=== PATIENT | female | born 1995 | race Caucasian/White ===

== ENCOUNTER 2019-07-08 14:41 | Emergency (ER) | payer MEDICAID ==
[~2019-07-08] VITALS: Ht 152.4 cm; Wt 51.0 kg
[2019-07-08 15:22] VITALS: BP 128/89
== END 2019-07-08 15:18 | disposition home or self-care (01) ==
LOC: ER 14:41
DX: R07.89 Other chest pain (principal); Z88.0 Allergy status to penicillin
CPT/HCPCS: 93005; 99283

== ENCOUNTER 2019-09-30 01:27 | Emergency (ER) | payer SELFPAY ==
[~2019-09-30] VITALS: Ht 152.4 cm; Wt 53.0 kg
[2019-09-30 02:14] VITALS: BP 122/76
== END 2019-09-30 02:15 | disposition home or self-care (01) ==
LOC: ER 01:27
DX: R05 Cough (principal); Z88.0 Allergy status to penicillin
CPT/HCPCS: 71045; 81025; 99283

== ENCOUNTER 2020-06-19 21:50 | Emergency (ER) | payer OTHER ==
[~2020-06-19] VITALS: Ht 152.4 cm; Wt 53.0 kg
[2020-06-19 22:48] LABS: CLARITY URINE TURBID (CLEAR); COLOR URINE YELLOW (YELLOW); KETONES URINE NEGATIVE (NEGATIVE); LEUKOCYTE ESTERASE URINE 3+ (NEGATIVE); NITRITE URINE NEGATIVE (NEGATIVE); OCCULT BLOOD URINE 3+ (NEGATIVE); PH URINE 5.5 (4.5-8.0); PROTEIN URINE 2+ (NEGATIVE); SPECIFIC GRAVITY URINE 1.013 (1.005-1.030); UROBILINOGEN URINE 0.2 E.U./dL (0.2-1.0)
[2020-06-19] MEDS ORDERED: PHEN-815 MT (23:14)
[2020-06-19] MEDS ORDERED: NITR-87 MT (23:14)
[2020-06-19] MEDS ORDERED: PHENAZOPYRIDINE HCL 100MG TABLET PO ONE (23:15)
[2020-06-19] MEDS ORDERED: NITROFURANTOIN 100MG M/M CAPSULE PO ONE (23:15)
[2020-06-19] MEDS ORDERED: NITROFURANTOIN 100MG M/M CAPSULE PO NR (23:45)
[2020-06-20 00:30] VITALS: BP 129/74
== END 2020-06-20 00:54 | disposition home or self-care (01) ==
LOC: ER 21:50
DX: N30.00 Acute cystitis without hematuria (principal); Z88.0 Allergy status to penicillin
CPT/HCPCS: 81003; 81025; 87077; 87186; 99283